=== PATIENT | male | born 1955 | race Two or more races ===

== ENCOUNTER 2019-10-21 09:55 | Inpatient (IN) | payer MEDICAID, OTHER, SELFPAY ==
[~2019-10-21] VITALS: Ht 170.2 cm; Wt 73.5 kg
[2019-10-21] MEDS ORDERED: SODIUM CHLORIDE 0.9% 500 ML IV ONE ×2 (10:17→11:36)
[2019-10-21] MEDS ORDERED: SODIUM CHLORIDE 0.9% 1000ML BAG (SEPSIS BOLUS) IV ONE (10:30)
[2019-10-21 11:01] LABS: BASOPHILS % 0.2 % (0.0-2.0); EOSINOPHILS % 0.1 % (0.0-5.0); HEMATOCRIT. 41.4 % (42.0-52.0); HEMOGLOBIN. 14.3 g/dL (14.0-18.0); MEAN CORPUSCULAR HEMOGLOBIN 29.2 pg (28.0-32.0); MEAN CORPUSCULAR VOLUME 84.4 fL (80.0-94.0); MEAN PLATELET VOLUME 7.4 fl (7.4-10.4); MONOCYTES % 13.9 % (2.0-8.0); NEUTROPHILS % 65.8 % (40.0-76.0); PLATELET 153 x1000/uL (130-400); RED CELL DISTRIBUTION WIDTH 13.8 % (11.6-14.6)
[2019-10-21 11:09] LABS: CHLORIDE 86 mEq/L (98-107)
[2019-10-21 11:13] LABS: D-DIMER 0.68 mg/L FEU (<0.50); ETHANOL BLOOD < 10 mg/dL; INR 1.1; PROTHROMBIN TIME 11.4 sec (9.6-11.0)
[2019-10-21 11:19] LABS: CREATINE KINASE 717 IU/L (39-308)
[2019-10-21 11:31] LABS: CLARITY URINE CLEAR (CLEAR); COLOR URINE YELLOW (YELLOW); KETONES URINE 1+ (NEGATIVE); LEUKOCYTE ESTERASE URINE NEGATIVE (NEGATIVE); NITRITE URINE NEGATIVE (NEGATIVE); OCCULT BLOOD URINE 1+ (NEGATIVE); PH URINE 6.5 (4.5-8.0); PROTEIN URINE 1+ (NEGATIVE); SPECIFIC GRAVITY URINE 1.007 (1.005-1.030)
[2019-10-21 11:54] LABS: OPIATES URINE SCREEN NEGATIVE (NEGATIVE); PHENCYCLIDINE URINE SCREEN NEGATIVE (NEGATIVE)
[2019-10-21 11:55] LABS: *AMPHETAMINES SCREEN URINE NEGATIVE (NEGATIVE); *BARBITURATES SCREEN URINE NEGATIVE (NEGATIVE); *BENZODIAZEPINES SCREEN URINE NEGATIVE (NEGATIVE); *COCAINE SCREEN URINE NEGATIVE (NEGATIVE); CANNABINOID URINE SCREEN NEGATIVE (NEGATIVE); METHADONE URINE SCREEN NEGATIVE (NEGATIVE)
[2019-10-21] MEDS ORDERED: LORAZEPAM 0.5MG TABLET PO PRN (12:30)
[2019-10-21] MEDS ORDERED: DOCUSATE SODIUM 100MG CAPSULE PO PRN (12:30)
[2019-10-21] MEDS ORDERED: CLONIDINE 0.1MG TABLET PO PRN (12:30)
[2019-10-21] MEDS ORDERED: ZOLPIDEM TARTRATE 5MG TABLET PO PRN (12:30)
[2019-10-21] MEDS ORDERED: ONDANSETRON HCL 4MG/2ML INJ IV PRN (12:30)
[2019-10-21] MEDS ORDERED: MAGNESIUM/ALUMINUM HYDROXIDE/SIMETHICONE 30ML UDC PO PRN (12:30)
[2019-10-21] MEDS ORDERED: IPRATROPIUM/ALBUTEROL 0.5-3(2.5)MG/3ML NEB ORI PRN (12:30)
[2019-10-21 13:01] LABS: T4 FREE 0.98 ng/dL (0.76-1.46)
[2019-10-21 14:10] LABS: FOLIC ACID (FOLATE) SERUM >20 ng/mL ng/mL (>5.38)
[2019-10-21] MEDS ORDERED: CEFTRIAXONE 1 G PREMIX 50 ML IV SCH (14:15)
[2019-10-21 14:21] LABS: VITAMIN B12 SERUM 247 pg/mL (211-911)
[2019-10-21] MEDS ORDERED: AZITHROMYCIN 500 MG in DEXT 5% WATER 250 ML IV SCH (14:30)
[2019-10-21 15:25] VITALS: BP_SYST 135; BP_DIAS 85; BP_DIAS 87
[2019-10-21 16:00] VITALS: BP 140/84
[2019-10-21] MEDS: GUAIFENESIN/DM 600MG/30MG ER TAB 12HR PO SCH (16:33)
[2019-10-21] MEDS: ENOXAPARIN 40MG/0.4ML SYR SUBCUT SCH (16:33)
[2019-10-21 20:00] VITALS: BP 149/91
[2019-10-21] MEDS: FAMOTIDINE 20MG TABLET PO SCH (21:08)
[2019-10-21] MEDS: METOPROLOL TARTRATE 25MG TABLET PO SCH (21:09)
[2019-10-21] MEDS: ACETAMINOPHEN 325MG TABLET PO PRN (21:09)
[2019-10-21] MEDS: ASCORBIC ACID 500 MG TABLET PO SCH (21:12)
[2019-10-22] MEDS: GUAIFENESIN/DM 600MG/30MG ER TAB 12HR PO SCH ×2 (03:59→12:38)
[2019-10-22 04:00] VITALS: BP 149/89
[2019-10-22 07:46] LABS: BASOPHILS % 0.3 % (0.0-2.0); HEMATOCRIT. 40.5 % (42.0-52.0); HEMOGLOBIN. 14.1 g/dL (14.0-18.0); MEAN CORPUSCULAR HEMOGLOBIN 29.3 pg (28.0-32.0); MEAN CORPUSCULAR VOLUME 84.1 fL (80.0-94.0); MONOCYTES % 8.4 % (2.0-8.0); NEUTROPHILS % 73.3 % (40.0-76.0); PLATELET 158 x1000/uL (130-400); RED BLOOD CELL COUNT 4.81 mill/uL (4.7-6.1); RED CELL DISTRIBUTION WIDTH 13.9 % (11.6-14.6)
[2019-10-22 07:53] LABS: CHLORIDE 92 mEq/L (98-107)
[2019-10-22 08:00] VITALS: BP 158/81
[2019-10-22 08:00] LABS: PHOSPHORUS 2.1 mg/dL (2.5-4.9)
[2019-10-22] MEDS: METOPROLOL TARTRATE 25MG TABLET PO SCH ×2 (08:51→20:11)
[2019-10-22] MEDS: FAMOTIDINE 20MG TABLET PO SCH ×2 (08:51→20:11)
[2019-10-22] MEDS: ASCORBIC ACID 500 MG TABLET PO SCH ×2 (08:51→20:11)
[2019-10-22] MEDS ORDERED: CEFTRIAXONE 1 G PREMIX 50 ML IV SCH (09:00)
[2019-10-22] MEDS ORDERED: AZITHROMYCIN 500MG in DEXTROSE 5% WATER 250ML IV SCH (09:00)
[2019-10-22] MEDS: ACETAMINOPHEN 325MG TABLET PO PRN ×3 (09:03→22:01)
[2019-10-22] MEDS: GUAIFENESIN 200MG/10ML SUGAR FREE UDC PO PRN (09:03)
[2019-10-22] MEDS: ZINC SULFATE 220 MG ( 50 ) CAPSULE PO SCH (09:04)
[2019-10-22 12:00] VITALS: BP 122/70
[2019-10-22 16:00] VITALS: BP 146/81
[2019-10-22] MEDS: ENOXAPARIN 40MG/0.4ML SYR SUBCUT SCH (16:08)
[2019-10-22] MEDS ORDERED: ALBUTEROL 6.7GM HFA INHALER ORI NR (17:00)
[2019-10-22] MEDS ORDERED: AZITHROMYCIN 250 MG in DEXT 5% WATER 250 ML IV SCH (18:00)
[2019-10-22] MEDS ORDERED: ALBUTEROL 6.7GM HFA INHALER ORI PRN (18:00)
[2019-10-22 20:00] VITALS: BP 137/86
[2019-10-23] VITALS: BP 121/79
[2019-10-23] MEDS: GUAIFENESIN/DM 600MG/30MG ER TAB 12HR PO SCH ×3 (00:18→23:34)
[2019-10-23] MEDS: ACETAMINOPHEN 325MG TABLET PO PRN ×4 (03:19→23:46)
[2019-10-23 03:40] VITALS: BP 108/53
[2019-10-23] MEDS: AZITHROMYCIN 250 MG in DEXT 5% WATER 250 ML IV SCH (07:50)
[2019-10-23] MEDS: ASCORBIC ACID 500 MG TABLET PO SCH ×2 (07:50→20:35)
[2019-10-23] MEDS: ZINC SULFATE 220 MG ( 50 ) CAPSULE PO SCH (07:50)
[2019-10-23] MEDS: CEFTRIAXONE 1 G PREMIX 50 ML IV SCH (07:50)
[2019-10-23] MEDS: FAMOTIDINE 20MG TABLET PO SCH ×2 (07:50→20:35)
[2019-10-23 08:00] VITALS: BP 124/72
[2019-10-23] MEDS: METOPROLOL TARTRATE 25MG TABLET PO SCH ×3 (12:08→20:49)
[2019-10-23 12:25] VITALS: BP 123/81
[2019-10-23 15:50] VITALS: BP 118/73
[2019-10-23] MEDS: ENOXAPARIN 40MG/0.4ML SYR SUBCUT SCH (16:51)
[2019-10-23 20:00] VITALS: BP 103/59
[2019-10-24] VITALS: BP 123/71
[2019-10-24] MEDS: ACETAMINOPHEN 325MG TABLET PO PRN ×4 (04:35→22:09)
[2019-10-24 08:00] VITALS: BP 100/50
[2019-10-24] MEDS: METOPROLOL TARTRATE 25MG TABLET PO SCH ×2 (08:08→20:50)
[2019-10-24] MEDS: FAMOTIDINE 20MG TABLET PO SCH ×2 (08:22→20:48)
[2019-10-24] MEDS: ASCORBIC ACID 500 MG TABLET PO SCH ×2 (08:22→20:48)
[2019-10-24] MEDS: ZINC SULFATE 220 MG ( 50 ) CAPSULE PO SCH (08:22)
[2019-10-24] MEDS: CEFTRIAXONE 1 G PREMIX 50 ML IV SCH (10:01)
[2019-10-24 11:45] VITALS: BP 108/67
[2019-10-24] MEDS: AZITHROMYCIN 250 MG in DEXT 5% WATER 250 ML IV SCH (13:13)
[2019-10-24] MEDS: GUAIFENESIN/DM 600MG/30MG ER TAB 12HR PO SCH (13:13)
[2019-10-24 16:00] VITALS: BP 143/72
[2019-10-24] MEDS: ENOXAPARIN 40MG/0.4ML SYR SUBCUT SCH (16:17)
[2019-10-24 20:56] VITALS: BP 109/64
[2019-10-25] MEDS: ALBUTEROL 6.7GM HFA INHALER ORI SCH
[2019-10-25] MEDS: GUAIFENESIN/DM 600MG/30MG ER TAB 12HR PO SCH ×2 (00:13→12:12)
[2019-10-25 00:38] VITALS: BP 131/66
[2019-10-25 04:00] VITALS: BP 122/77
[2019-10-25 08:00] VITALS: BP 119/75
[2019-10-25] MEDS: AZITHROMYCIN 250 MG in DEXT 5% WATER 250 ML IV SCH (08:47)
[2019-10-25] MEDS: CEFTRIAXONE 1 G PREMIX 50 ML IV SCH (09:28)
[2019-10-25] MEDS: ZINC SULFATE 220 MG ( 50 ) CAPSULE PO SCH (09:28)
[2019-10-25] MEDS: METOPROLOL TARTRATE 25MG TABLET PO SCH ×2 (09:28→20:26)
[2019-10-25] MEDS: ASCORBIC ACID 500 MG TABLET PO SCH ×2 (09:28→20:26)
[2019-10-25] MEDS: FAMOTIDINE 20MG TABLET PO SCH ×2 (09:32→20:26)
[2019-10-25] MEDS: ACETAMINOPHEN 325MG TABLET PO PRN (11:25)
[2019-10-25 12:00] VITALS: BP 110/65
[2019-10-25] MEDS: METHYLPREDNISOLONE SOD SUCC 40 MG/ML VIAL IV SCH ×2 (13:44→16:29)
[2019-10-25 16:00] VITALS: BP 115/64
[2019-10-25] MEDS: ENOXAPARIN 40MG/0.4ML SYR SUBCUT SCH (16:28)
[2019-10-25 20:00] VITALS: BP 135/78
[2019-10-25] MEDS: GUAIFENESIN 200MG/10ML SUGAR FREE UDC PO PRN (20:26)
[2019-10-25] MEDS: GUAIFENESIN 600MG ER TABLET PO SCH (20:26)
[2019-10-25] MEDS: KETOROLAC 15MG/ML VIAL IV PRN (20:38)
[2019-10-26] VITALS: BP 117/69
[2019-10-26 04:00] VITALS: BP 139/70
[2019-10-26] MEDS: ALBUTEROL 6.7GM HFA INHALER ORI SCH ×2 (05:24→13:00)
[2019-10-26] MEDS: KETOROLAC 15MG/ML VIAL IV PRN ×2 (05:29→12:31)
[2019-10-26 08:00] VITALS: BP 109/77
[2019-10-26] MEDS: AZITHROMYCIN 250 MG in DEXT 5% WATER 250 ML IV SCH (08:21)
[2019-10-26] MEDS: FAMOTIDINE 20MG TABLET PO SCH ×2 (08:22→20:41)
[2019-10-26] MEDS: GUAIFENESIN 600MG ER TABLET PO SCH ×2 (08:22→20:41)
[2019-10-26] MEDS: METHYLPREDNISOLONE SOD SUCC 40 MG/ML VIAL IV SCH ×2 (08:22→16:15)
[2019-10-26] MEDS: ZINC SULFATE 220 MG ( 50 ) CAPSULE PO SCH (08:22)
[2019-10-26] MEDS: ASCORBIC ACID 500 MG TABLET PO SCH ×2 (08:22→20:41)
[2019-10-26] MEDS: METOPROLOL TARTRATE 25MG TABLET PO SCH ×2 (09:00→21:00)
[2019-10-26 12:00] VITALS: BP 113/75
[2019-10-26 16:00] VITALS: BP 118/73
[2019-10-26] MEDS: ENOXAPARIN 40MG/0.4ML SYR SUBCUT SCH (16:16)
[2019-10-27] VITALS: BP 106/59
[2019-10-27] MEDS: ALBUTEROL 6.7GM HFA INHALER ORI SCH ×2 (00:19→07:06)
[2019-10-27 04:00] VITALS: BP 124/62
[2019-10-27 08:00] VITALS: BP 103/66
[2019-10-27] MEDS: FAMOTIDINE 20MG TABLET PO SCH ×2 (08:53→21:10)
[2019-10-27] MEDS: METOPROLOL TARTRATE 25MG TABLET PO SCH ×2 (08:53→21:00)
[2019-10-27] MEDS: ASCORBIC ACID 500 MG TABLET PO SCH ×2 (08:53→21:10)
[2019-10-27] MEDS: ZINC SULFATE 220 MG ( 50 ) CAPSULE PO SCH (08:53)
[2019-10-27] MEDS: METHYLPREDNISOLONE SOD SUCC 40 MG/ML VIAL IV SCH ×2 (08:53→16:26)
[2019-10-27] MEDS: GUAIFENESIN 600MG ER TABLET PO SCH ×2 (08:53→21:10)
[2019-10-27 12:00] VITALS: BP 123/72
[2019-10-27 16:00] VITALS: BP 126/79
[2019-10-27] MEDS: ENOXAPARIN 40MG/0.4ML SYR SUBCUT SCH (16:26)
[2019-10-27 20:00] VITALS: BP 148/81
[2019-10-28] VITALS: BP 141/75
[2019-10-28] MEDS: ALBUTEROL 6.7GM HFA INHALER ORI SCH ×5 (00:33→23:06)
[2019-10-28 04:00] VITALS: BP 146/82
[2019-10-28 08:00] VITALS: BP 150/90
[2019-10-28] MEDS: METOPROLOL TARTRATE 25MG TABLET PO SCH ×3 (09:00→20:59)
[2019-10-28] MEDS: ASCORBIC ACID 500 MG TABLET PO SCH ×2 (10:17→20:58)
[2019-10-28] MEDS: FAMOTIDINE 20MG TABLET PO SCH ×2 (10:17→20:59)
[2019-10-28] MEDS: METHYLPREDNISOLONE SOD SUCC 40 MG/ML VIAL IV SCH ×2 (10:18→17:34)
[2019-10-28] MEDS: GUAIFENESIN 600MG ER TABLET PO SCH ×2 (10:18→20:59)
[2019-10-28] MEDS: ZINC SULFATE 220 MG ( 50 ) CAPSULE PO SCH (10:18)
[2019-10-28 12:00] VITALS: BP 140/84
[2019-10-28 16:00] VITALS: BP 150/85
[2019-10-28] MEDS: ENOXAPARIN 40MG/0.4ML SYR SUBCUT SCH (17:35)
[2019-10-28 17:45] LABS: HEMATOCRIT. 43.8 % (42.0-52.0); MEAN CORPUSCULAR VOLUME 84.8 fL (80.0-94.0); MEAN PLATELET VOLUME 7.1 fl (7.4-10.4); PLATELET 467 x1000/uL (130-400); RED BLOOD CELL COUNT 5.17 mill/uL (4.7-6.1)
[2019-10-28 17:52] LABS: CHLORIDE 95 mEq/L (98-107)
[2019-10-28 17:59] LABS: PHOSPHORUS 2.6 mg/dL (2.5-4.9)
[2019-10-28 18:01] LABS: CREATINE KINASE MB FRACTION < 1.0 ng/mL (0.5-3.6)
[2019-10-28 18:04] LABS: BG BASE EXCESS 4.1 mmol/L (-2.0-2.0); BG CARBOXYHEMOGLOBIN 0.6 % (0.5-1.5); BG DEOXYHEMOGLOBIN 6.7 % (0.0-5.0); BG FRACTION INSPIRED OXYGEN 100; BG METHEMOGLOBIN 0.3 % (0.0-1.5); BG OXYGEN SATURATION 93.2 % (92.0-98.5); BG OXYHEMOGLOBIN 92.4 % (94.0-97.0); BG PCO2 39.2 mmHg (35.0-45.0); BG PH 7.471 (7.350-7.450); BG PO2 66.8 mmHg (75.0-100.0); BG SAMPLE SITE RIGHT RADIAL; BG VENT MODE MASK - NRB
[2019-10-28 18:07] LABS: PLATELET ESTIMATE INCREASED
[2019-10-28 20:00] VITALS: BP 137/113
[2019-10-29] VITALS: BP 148/91
[2019-10-29 04:00] VITALS: BP 121/64
[2019-10-29] MEDS: ALBUTEROL 6.7GM HFA INHALER ORI SCH ×3 (05:58→17:17)
[2019-10-29 08:00] VITALS: BP 138/85
[2019-10-29] MEDS: METHYLPREDNISOLONE SOD SUCC 40 MG/ML VIAL IV SCH (08:06)
[2019-10-29] MEDS: GUAIFENESIN 600MG ER TABLET PO SCH ×2 (08:06→20:43)
[2019-10-29] MEDS: FAMOTIDINE 20MG TABLET PO SCH ×2 (08:06→20:43)
[2019-10-29] MEDS: METOPROLOL TARTRATE 25MG TABLET PO SCH ×4 (08:06→21:00)
[2019-10-29] MEDS: ZINC SULFATE 220 MG ( 50 ) CAPSULE PO SCH (08:06)
[2019-10-29] MEDS: ASCORBIC ACID 500 MG TABLET PO SCH ×2 (08:06→20:43)
[2019-10-29 12:00] VITALS: BP 130/80
[2019-10-29 16:00] VITALS: BP 124/73
[2019-10-29] MEDS: ENOXAPARIN 40MG/0.4ML SYR SUBCUT SCH (17:17)
[2019-10-29 20:00] VITALS: BP 104/69
[2019-10-30] VITALS: BP 110/68
[2019-10-30] MEDS: ACETAMINOPHEN 325MG TABLET PO PRN ×2 (02:08→12:16)
[2019-10-30 04:03] VITALS: BP 118/68
[2019-10-30] MEDS: ALBUTEROL 6.7GM HFA INHALER ORI SCH ×4 (06:00→16:59)
[2019-10-30 08:00] VITALS: BP 128/80
[2019-10-30] MEDS: ASCORBIC ACID 500 MG TABLET PO SCH ×2 (10:20→21:11)
[2019-10-30] MEDS: GUAIFENESIN 600MG ER TABLET PO SCH ×2 (10:20→21:10)
[2019-10-30] MEDS: ZINC SULFATE 220 MG ( 50 ) CAPSULE PO SCH (10:20)
[2019-10-30] MEDS: METOPROLOL TARTRATE 25MG TABLET PO SCH ×2 (10:21→21:11)
[2019-10-30] MEDS: FAMOTIDINE 20MG TABLET PO SCH ×2 (10:24→21:11)
[2019-10-30 12:00] VITALS: BP 130/84
[2019-10-30 16:00] VITALS: BP 134/82
[2019-10-30] MEDS: ENOXAPARIN 40MG/0.4ML SYR SUBCUT SCH (16:59)
[2019-10-30 20:00] VITALS: BP 138/88
[2019-10-30] MEDS ORDERED: DEXTROSE 50% WATER 50ML SYRINGE IV PRN (21:15)
[2019-10-31] MEDS: ALBUTEROL 6.7GM HFA INHALER ORI SCH ×5 (00:16→23:53)
[2019-10-31 00:54] VITALS: BP 130/78
[2019-10-31 04:00] VITALS: BP 131/83
[2019-10-31] MEDS: BLOOD SUGAR DIAGNOSTIC STRIP TEST SCH ×4 (07:09→20:35)
[2019-10-31 08:00] VITALS: BP 129/87
[2019-10-31] MEDS: ZINC SULFATE 220 MG ( 50 ) CAPSULE PO SCH (10:12)
[2019-10-31] MEDS: ASCORBIC ACID 500 MG TABLET PO SCH ×2 (10:12→20:34)
[2019-10-31] MEDS: FAMOTIDINE 20MG TABLET PO SCH ×2 (10:12→20:34)
[2019-10-31] MEDS: GUAIFENESIN 600MG ER TABLET PO SCH ×2 (10:13→20:35)
[2019-10-31] MEDS: INSULIN LISPRO 100 UNITS/ML SUBCUT SCH ×4 (10:14→20:49)
[2019-10-31] MEDS: METOPROLOL TARTRATE 25MG TABLET PO SCH ×2 (10:31→20:35)
[2019-10-31 12:00] VITALS: BP 148/89
[2019-10-31 16:00] VITALS: BP 129/87
[2019-10-31] MEDS: ENOXAPARIN 40MG/0.4ML SYR SUBCUT SCH (17:15)
[2019-10-31 20:00] VITALS: BP 139/89
[2019-11-01] VITALS: BP 130/86
[2019-11-01 04:00] VITALS: BP 116/84
[2019-11-01] MEDS: ALBUTEROL 6.7GM HFA INHALER ORI SCH ×3 (05:11→17:18)
[2019-11-01] MEDS: BLOOD SUGAR DIAGNOSTIC STRIP TEST SCH ×4 (07:11→21:00)
[2019-11-01] MEDS: INSULIN LISPRO 100 UNITS/ML SUBCUT SCH ×4 (07:11→21:00)
[2019-11-01 08:25] VITALS: BP 124/83
[2019-11-01] MEDS: ZINC SULFATE 220 MG ( 50 ) CAPSULE PO SCH (08:32)
[2019-11-01] MEDS: ASCORBIC ACID 500 MG TABLET PO SCH ×2 (08:32→23:07)
[2019-11-01] MEDS: FAMOTIDINE 20MG TABLET PO SCH ×2 (08:32→23:08)
[2019-11-01] MEDS: GUAIFENESIN 600MG ER TABLET PO SCH ×2 (08:33→21:00)
[2019-11-01] MEDS: METOPROLOL TARTRATE 25MG TABLET PO SCH ×2 (08:33→23:05)
[2019-11-01 11:49] VITALS: BP 126/72
[2019-11-01] MEDS: ENOXAPARIN 40MG/0.4ML SYR SUBCUT SCH ×2 (15:13→15:34)
[2019-11-01 16:00] VITALS: BP 118/68
[2019-11-01 20:00] VITALS: BP 114/82
[2019-11-02] VITALS: BP_SYST 143; BP_SYST 98; BP_DIAS 95
[2019-11-02 04:00] VITALS: BP 115/85
[2019-11-02] MEDS: ALBUTEROL 6.7GM HFA INHALER ORI SCH ×4 (06:41→17:36)
[2019-11-02] MEDS: BLOOD SUGAR DIAGNOSTIC STRIP TEST SCH ×4 (06:41→17:56)
[2019-11-02] MEDS: INSULIN LISPRO 100 UNITS/ML SUBCUT SCH ×4 (06:41→22:30)
[2019-11-02 07:20] LABS: BASOPHILS % 0.4 % (0.0-2.0); EOSINOPHILS % 0.2 % (0.0-5.0); HEMATOCRIT. 49.5 % (42.0-52.0); HEMOGLOBIN. 16.6 g/dL (14.0-18.0); LYMPHOCYTES % 13.2 % (20.0-50.0); MEAN CORPUSCULAR HEMOGLOBIN 28.8 pg (28.0-32.0); MEAN PLATELET VOLUME 6.9 fl (7.4-10.4); MONOCYTES % 11.9 % (2.0-8.0); NEUTROPHILS % 74.3 % (40.0-76.0); PLATELET 578 x1000/uL (130-400); RED BLOOD CELL COUNT 5.76 mill/uL (4.7-6.1); RED CELL DISTRIBUTION WIDTH 14.7 % (11.6-14.6)
[2019-11-02 07:41] LABS: CHLORIDE 99 mEq/L (98-107)
[2019-11-02 08:00] VITALS: BP 117/88
[2019-11-02] MEDS: ASCORBIC ACID 500 MG TABLET PO SCH ×2 (10:08→22:29)
[2019-11-02] MEDS: METOPROLOL TARTRATE 25MG TABLET PO SCH ×2 (10:08→22:28)
[2019-11-02] MEDS: ZINC SULFATE 220 MG ( 50 ) CAPSULE PO SCH (10:08)
[2019-11-02] MEDS: FAMOTIDINE 20MG TABLET PO SCH ×2 (10:08→22:28)
[2019-11-02] MEDS: GUAIFENESIN 600MG ER TABLET PO SCH ×2 (10:08→22:29)
[2019-11-02 12:00] VITALS: BP 120/89
[2019-11-02 16:00] VITALS: BP 121/84
[2019-11-02] MEDS: ENOXAPARIN 40MG/0.4ML SYR SUBCUT SCH (17:39)
[2019-11-02 20:00] VITALS: BP 132/81
[2019-11-03] VITALS: BP 111/84
[2019-11-03 04:00] VITALS: BP 110/71
[2019-11-03] MEDS: BLOOD SUGAR DIAGNOSTIC STRIP TEST SCH ×4 (07:01→21:00)
[2019-11-03] MEDS: INSULIN LISPRO 100 UNITS/ML SUBCUT SCH ×4 (07:14→21:00)
[2019-11-03 08:00] VITALS: BP 98/65
[2019-11-03] MEDS: GUAIFENESIN 600MG ER TABLET PO SCH ×2 (09:00→22:02)
[2019-11-03] MEDS: GUAIFENESIN 200MG/10ML SUGAR FREE UDC PO PRN (09:13)
[2019-11-03] MEDS: ASCORBIC ACID 500 MG TABLET PO SCH ×2 (09:13→22:02)
[2019-11-03] MEDS: FAMOTIDINE 20MG TABLET PO SCH ×2 (09:13→22:02)
[2019-11-03] MEDS: ZINC SULFATE 220 MG ( 50 ) CAPSULE PO SCH (09:14)
[2019-11-03] MEDS: METOPROLOL TARTRATE 25MG TABLET PO SCH ×2 (09:14→21:00)
[2019-11-03 12:00] VITALS: BP 110/70
[2019-11-03] MEDS ORDERED: DILTIAZEM HCL 30MG TABLET PO SCH (12:00)
[2019-11-03] MEDS: ALBUTEROL 6.7GM HFA INHALER ORI SCH ×2 (13:09→18:23)
[2019-11-03] MEDS ORDERED: DIGOXIN 500MCG/2ML AMP IV PRN (13:45)
[2019-11-03] MEDS: ENOXAPARIN 40MG/0.4ML SYR SUBCUT SCH (18:19)
[2019-11-03] MEDS ORDERED: BENZONATATE 100MG CAPSULE PO PRN (18:45)
[2019-11-03 20:00] VITALS: BP 108/82
[2019-11-03] MEDS: DILTIAZEM HCL 60MG TABLET PO SCH (22:03)
[2019-11-04] VITALS: BP 110/80
[2019-11-04] MEDS: ALBUTEROL 6.7GM HFA INHALER ORI SCH ×4 (00:58→18:27)
[2019-11-04 04:00] VITALS: BP 103/68
[2019-11-04 05:38] LABS: BASOPHILS % 0.9 % (0.0-2.0); EOSINOPHILS % 0.2 % (0.0-5.0); HEMATOCRIT. 45.7 % (42.0-52.0); HEMOGLOBIN. 15.3 g/dL (14.0-18.0); LYMPHOCYTES % 16.3 % (20.0-50.0); MEAN CORPUSCULAR HEMOGLOBIN 28.6 pg (28.0-32.0); MEAN CORPUSCULAR VOLUME 85.5 fL (80.0-94.0); MEAN PLATELET VOLUME 7.1 fl (7.4-10.4); MONOCYTES % 12.5 % (2.0-8.0); NEUTROPHILS % 70.1 % (40.0-76.0); PLATELET 533 x1000/uL (130-400); RED BLOOD CELL COUNT 5.34 mill/uL (4.7-6.1); RED CELL DISTRIBUTION WIDTH 14.2 % (11.6-14.6)
[2019-11-04 05:54] LABS: CHLORIDE 99 mEq/L (98-107)
[2019-11-04] MEDS: DILTIAZEM HCL 60MG TABLET PO SCH ×3 (06:00→22:47)
[2019-11-04] MEDS: BLOOD SUGAR DIAGNOSTIC STRIP TEST SCH ×4 (07:58→21:00)
[2019-11-04 08:00] VITALS: BP 97/73
[2019-11-04] MEDS: INSULIN LISPRO 100 UNITS/ML SUBCUT SCH ×4 (08:10→21:00)
[2019-11-04] MEDS: ASCORBIC ACID 500 MG TABLET PO SCH ×2 (08:48→22:48)
[2019-11-04] MEDS: ZINC SULFATE 220 MG ( 50 ) CAPSULE PO SCH (08:48)
[2019-11-04] MEDS: FAMOTIDINE 20MG TABLET PO SCH ×2 (08:48→21:00)
[2019-11-04] MEDS: ENOXAPARIN 80MG/0.8ML SYR SUBCUT SCH ×2 (08:48→22:49)
[2019-11-04] MEDS: GUAIFENESIN 600MG ER TABLET PO SCH ×2 (08:49→22:48)
[2019-11-04] MEDS: METOPROLOL TARTRATE 25MG TABLET PO SCH ×2 (08:50→21:00)
[2019-11-04 12:00] VITALS: BP 102/65
[2019-11-04] MEDS ORDERED: MAGNESIUM 2 G PREMIX 50 ML IV NR (12:00)
[2019-11-04] MEDS: CLOPIDOGREL 75MG TABLET PO SCH (12:16)
[2019-11-04] MEDS: MAGNESIUM OXIDE 400MG TABLET PO SCH (12:16)
[2019-11-04] MEDS: ASPIRIN 81MG EC TABLET PO SCH (12:16)
[2019-11-04 16:00] VITALS: BP 106/76
[2019-11-04 20:00] VITALS: BP 105/72
[2019-11-04] MEDS: ATORVASTATIN CALCIUM 10MG TABLET PO SCH (22:48)
[2019-11-05] VITALS: BP 102/69
[2019-11-05] MEDS: ALBUTEROL 6.7GM HFA INHALER ORI SCH ×2 (00:45→05:56)
[2019-11-05 04:00] VITALS: BP 99/71
[2019-11-05] MEDS: DILTIAZEM HCL 60MG TABLET PO SCH ×3 (05:57→22:00)
[2019-11-05 06:45] LABS: BASOPHILS % 1.1 % (0.0-2.0); EOSINOPHILS % 0.6 % (0.0-5.0); HEMATOCRIT. 40.4 % (42.0-52.0); LYMPHOCYTES % 20.3 % (20.0-50.0); MEAN CORPUSCULAR HEMOGLOBIN 29.4 pg (28.0-32.0); MEAN CORPUSCULAR VOLUME 84.8 fL (80.0-94.0); MEAN PLATELET VOLUME 6.9 fl (7.4-10.4); MONOCYTES % 13.2 % (2.0-8.0); NEUTROPHILS % 64.8 % (40.0-76.0); PLATELET 458 x1000/uL (130-400); RED BLOOD CELL COUNT 4.76 mill/uL (4.7-6.1); RED CELL DISTRIBUTION WIDTH 14.2 % (11.6-14.6)
[2019-11-05] MEDS: BLOOD SUGAR DIAGNOSTIC STRIP TEST SCH ×4 (07:05→21:00)
[2019-11-05 07:20] LABS: CHLORIDE 99 mEq/L (98-107)
[2019-11-05 07:29] LABS: CREATINE KINASE MB FRACTION 1.7 ng/mL (0.5-3.6)
[2019-11-05 07:33] LABS: CREATINE KINASE 62 IU/L (39-308)
[2019-11-05 08:00] VITALS: BP 94/70
[2019-11-05] MEDS: INSULIN LISPRO 100 UNITS/ML SUBCUT SCH ×4 (08:10→21:00)
[2019-11-05] MEDS: METOPROLOL TARTRATE 25MG TABLET PO SCH ×2 (09:00→23:25)
[2019-11-05] MEDS ORDERED: FUROSEMIDE 40MG/4ML VIAL IVP NR (09:45)
[2019-11-05] MEDS: ASCORBIC ACID 500 MG TABLET PO SCH ×2 (11:37→23:25)
[2019-11-05] MEDS: MAGNESIUM OXIDE 400MG TABLET PO SCH (11:37)
[2019-11-05] MEDS: FAMOTIDINE 20MG TABLET PO SCH ×2 (11:37→23:24)
[2019-11-05] MEDS: GUAIFENESIN 600MG ER TABLET PO SCH ×2 (11:44→23:25)
[2019-11-05] MEDS: ASPIRIN 81MG EC TABLET PO SCH (11:44)
[2019-11-05] MEDS: CLOPIDOGREL 75MG TABLET PO SCH (11:44)
[2019-11-05 12:00] VITALS: BP 112/81
[2019-11-05] MEDS: ENOXAPARIN 80MG/0.8ML SYR SUBCUT SCH ×2 (14:53→23:25)
[2019-11-05] MEDS: ZINC SULFATE 220 MG ( 50 ) CAPSULE PO SCH (14:53)
[2019-11-05 16:00] VITALS: BP 112/81
[2019-11-05 20:00] VITALS: BP 151/113
[2019-11-05] MEDS: ATORVASTATIN CALCIUM 10MG TABLET PO SCH (23:24)
[2019-11-06 04:00] VITALS: BP 120/73
[2019-11-06] MEDS: DILTIAZEM HCL 60MG TABLET PO SCH ×3 (06:29→22:00)
[2019-11-06] MEDS: BLOOD SUGAR DIAGNOSTIC STRIP TEST SCH ×4 (06:57→21:44)
[2019-11-06 08:00] VITALS: BP 96/62
[2019-11-06] MEDS: INSULIN LISPRO 100 UNITS/ML SUBCUT SCH ×4 (08:10→21:00)
[2019-11-06 08:23] LABS: EOSINOPHILS % 0.7 % (0.0-5.0); HEMATOCRIT. 41.9 % (42.0-52.0); HEMOGLOBIN. 14.1 g/dL (14.0-18.0); LYMPHOCYTES % 21.3 % (20.0-50.0); MEAN CORPUSCULAR HEMOGLOBIN 28.8 pg (28.0-32.0); MEAN CORPUSCULAR VOLUME 85.4 fL (80.0-94.0); MONOCYTES % 13.8 % (2.0-8.0); NEUTROPHILS % 62.2 % (40.0-76.0); PLATELET 418 x1000/uL (130-400); RED BLOOD CELL COUNT 4.91 mill/uL (4.7-6.1); RED CELL DISTRIBUTION WIDTH 13.8 % (11.6-14.6)
[2019-11-06 08:26] LABS: CHLORIDE 98 mEq/L (98-107)
[2019-11-06 08:33] LABS: CREATINE KINASE 50 IU/L (39-308)
[2019-11-06 08:35] LABS: CREATINE KINASE MB FRACTION < 1.0 ng/mL (0.5-3.6)
[2019-11-06] MEDS: METOPROLOL TARTRATE 25MG TABLET PO SCH ×2 (09:00→21:00)
[2019-11-06] MEDS: ENOXAPARIN 80MG/0.8ML SYR SUBCUT SCH ×2 (09:33→21:49)
[2019-11-06] MEDS: GUAIFENESIN 600MG ER TABLET PO SCH ×2 (09:34→21:49)
[2019-11-06] MEDS: CLOPIDOGREL 75MG TABLET PO SCH (09:34)
[2019-11-06] MEDS: MAGNESIUM OXIDE 400MG TABLET PO SCH (09:34)
[2019-11-06] MEDS: ASCORBIC ACID 500 MG TABLET PO SCH ×2 (09:34→21:49)
[2019-11-06] MEDS: FAMOTIDINE 20MG TABLET PO SCH ×2 (09:34→21:49)
[2019-11-06] MEDS: ASPIRIN 81MG EC TABLET PO SCH (09:34)
[2019-11-06] MEDS: ZINC SULFATE 220 MG ( 50 ) CAPSULE PO SCH (09:34)
[2019-11-06] MEDS: ALBUTEROL 6.7GM HFA INHALER ORI SCH ×4 (10:37→23:32)
[2019-11-06 12:00] VITALS: BP 111/69
[2019-11-06 16:00] VITALS: BP 99/71
[2019-11-06 20:00] VITALS: BP 102/72
[2019-11-06] MEDS: ATORVASTATIN CALCIUM 10MG TABLET PO SCH (21:49)
[2019-11-07] VITALS: BP 110/68
[2019-11-07 04:00] VITALS: BP 98/72
[2019-11-07] MEDS: DILTIAZEM HCL 60MG TABLET PO SCH ×3 (05:28→21:28)
[2019-11-07] MEDS: ALBUTEROL 6.7GM HFA INHALER ORI SCH ×3 (05:30→17:29)
[2019-11-07] MEDS: INSULIN LISPRO 100 UNITS/ML SUBCUT SCH ×4 (06:31→21:28)
[2019-11-07] MEDS: BLOOD SUGAR DIAGNOSTIC STRIP TEST SCH ×4 (06:31→21:23)
[2019-11-07 08:00] VITALS: BP 127/80
[2019-11-07] MEDS: CLOPIDOGREL 75MG TABLET PO SCH (08:41)
[2019-11-07] MEDS: ASCORBIC ACID 500 MG TABLET PO SCH ×2 (08:41→21:26)
[2019-11-07] MEDS: FAMOTIDINE 20MG TABLET PO SCH ×2 (08:41→21:26)
[2019-11-07] MEDS: ASPIRIN 81MG EC TABLET PO SCH (08:41)
[2019-11-07] MEDS: METOPROLOL TARTRATE 25MG TABLET PO SCH ×2 (08:41→21:27)
[2019-11-07] MEDS: ENOXAPARIN 80MG/0.8ML SYR SUBCUT SCH ×2 (08:41→21:26)
[2019-11-07] MEDS: MAGNESIUM OXIDE 400MG TABLET PO SCH (08:41)
[2019-11-07] MEDS: GUAIFENESIN 600MG ER TABLET PO SCH ×2 (08:41→21:26)
[2019-11-07] MEDS: ZINC SULFATE 220 MG ( 50 ) CAPSULE PO SCH (08:41)
[2019-11-07 12:00] VITALS: BP 98/72
[2019-11-07 16:00] VITALS: BP 93/62
[2019-11-07 20:00] VITALS: BP 111/72
[2019-11-07] MEDS: ATORVASTATIN CALCIUM 10MG TABLET PO SCH (21:26)
[2019-11-08] VITALS: BP 99/70
[2019-11-08] MEDS: ALBUTEROL 6.7GM HFA INHALER ORI SCH ×3 (00:56→11:30)
[2019-11-08 04:30] VITALS: BP 102/71
[2019-11-08] MEDS: DILTIAZEM HCL 60MG TABLET PO SCH ×2 (06:00→13:24)
[2019-11-08 08:00] VITALS: BP 132/70
[2019-11-08] MEDS: INSULIN LISPRO 100 UNITS/ML SUBCUT SCH ×2 (08:10→13:24)
[2019-11-08] MEDS: BLOOD SUGAR DIAGNOSTIC STRIP TEST SCH ×2 (08:26→11:34)
[2019-11-08] MEDS: ASPIRIN 81MG EC TABLET PO SCH (08:27)
[2019-11-08] MEDS: CLOPIDOGREL 75MG TABLET PO SCH (08:27)
[2019-11-08] MEDS: FAMOTIDINE 20MG TABLET PO SCH (08:27)
[2019-11-08] MEDS: METOPROLOL TARTRATE 25MG TABLET PO SCH (08:28)
[2019-11-08] MEDS: GUAIFENESIN 600MG ER TABLET PO SCH (08:28)
[2019-11-08] MEDS: ASCORBIC ACID 500 MG TABLET PO SCH (08:28)
[2019-11-08] MEDS: ZINC SULFATE 220 MG ( 50 ) CAPSULE PO SCH (08:28)
[2019-11-08] MEDS: MAGNESIUM OXIDE 400MG TABLET PO SCH (08:29)
[2019-11-08] MEDS: ENOXAPARIN 80MG/0.8ML SYR SUBCUT SCH (08:45)
[2019-11-08 17:03] VITALS: BP 103/71
[2019-11-08] MEDS: ACETAMINOPHEN 325MG TABLET PO PRN (17:54)
== END 2019-11-08 18:15 | disposition home or self-care (01) | DRG 720 ==
LOC: ER 09:55 → EDBEDREQ 10:52 → EDBEDREQTM 10:55 → ENRESERV 11:14 → 7WST 11:55 → EDBEDREQ 11:56
PROVIDERS: ADMIT Internal Medicine; ATTEND Internal Medicine
DX: A41.89 Other specified sepsis (principal); U07.1 COVID-19; J96.01 Acute respiratory failure with hypoxia; I21.4 Non-ST elevation (NSTEMI) myocardial infarction; G93.41 Metabolic encephalopathy; E44.1 Mild protein-calorie malnutrition; M62.82 Rhabdomyolysis; I48.0 Paroxysmal atrial fibrillation; E86.1 Hypovolemia; E83.42 Hypomagnesemia; E83.51 Hypocalcemia; E87.1 Hypo-osmolality and hyponatremia; F17.210 Nicotine dependence, cigarettes, uncomplicated; E03.9 Hypothyroidism, unspecified; J12.89 Other viral pneumonia; N39.0 Urinary tract infection, site not specified; F03.90 Unspecified dementia, unspecified severity, without behavioral disturbance, psychotic disturbance, mood disturbance, and anxiety; F20.9 Schizophrenia, unspecified; I25.10 Atherosclerotic heart disease of native coronary artery without angina pectoris; I48.92 Unspecified atrial flutter; Z68.25 Body mass index [BMI] 25.0-25.9, adult; Z79.899 Other long term (current) drug therapy; Z79.02 Long term (current) use of antithrombotics/antiplatelets
CPT/HCPCS: 36415; 36600; 71045; 80048; 80053; 80061; 80305; 80320; 81003; 82375; 82550; 82553; 82607; 82728; 82746; 82805; 82962; 83036; 83540; 83550; 83605; 83615; 83735; 83880; 84100; 84145; 84439; 84443; 84484; 85025; 85379; 85384; 86140; 87635; 87804; 93005; 93306; 99291; J0456; J0696; J1650; J1815; J1885; J1940; J2920; J3475; J7030; J7040; J7060; G0480; U0003-CS

== ENCOUNTER 2019-11-09 14:56 | Inpatient (IN) | payer MEDICAID, OTHER, SELFPAY ==
[~2019-11-09] VITALS: Ht 170.2 cm; Wt 70.8 kg
[2019-11-09] MEDS ORDERED: ONDANSETRON HCL 4MG/2ML INJ IV ONE (16:30)
[2019-11-09] MEDS ORDERED: FAMOTIDINE 20MG/2ML VIAL IV ONE (16:30)
[2019-11-09] MEDS ORDERED: MORPHINE SULFATE 4 MG/ML CPJ (NOT FOR IM USE) IV ONE (16:30)
[2019-11-09 17:28] LABS: CLARITY URINE CLEAR (CLEAR); COLOR URINE YELLOW (YELLOW); KETONES URINE NEGATIVE (NEGATIVE); LEUKOCYTE ESTERASE URINE TRACE (NEGATIVE); NITRITE URINE NEGATIVE (NEGATIVE); OCCULT BLOOD URINE NEGATIVE (NEGATIVE); PROTEIN URINE NEGATIVE (NEGATIVE); SPECIFIC GRAVITY URINE 1.016 (1.005-1.030)
[2019-11-09 17:28] LABS: BASOPHILS % 1.8 % (0.0-2.0); EOSINOPHILS % 0.9 % (0.0-5.0); HEMATOCRIT. 39.8 % (42.0-52.0); HEMOGLOBIN. 13.8 g/dL (14.0-18.0); LYMPHOCYTES % 25.7 % (20.0-50.0); MEAN CORPUSCULAR HEMOGLOBIN 29.4 pg (28.0-32.0); MEAN CORPUSCULAR VOLUME 84.8 fL (80.0-94.0); MEAN PLATELET VOLUME 7.3 fl (7.4-10.4); MONOCYTES % 10.9 % (2.0-8.0); NEUTROPHILS % 60.7 % (40.0-76.0); PLATELET 325 x1000/uL (130-400)
[2019-11-09 17:33] LABS: CHLORIDE 99 mEq/L (98-107)
[2019-11-09 17:40] LABS: CREATINE KINASE 61 IU/L (39-308)
[2019-11-09 17:47] LABS: D-DIMER 1.12 mg/L FEU (<0.50); PROTHROMBIN TIME 11.3 sec (9.6-11.0)
[2019-11-09] MEDS ORDERED: ASPIRIN 81MG EC TABLET PO ONE (19:15)
[2019-11-09 22:15] VITALS: BP 109/73
[2019-11-09] MEDS ORDERED: MORPHINE SULFATE 2 MG/ML CPJ (NOT FOR IM USE) IV PRN (23:00)
[2019-11-09] MEDS ORDERED: CLONIDINE 0.1MG TABLET PO PRN (23:00)
[2019-11-09] MEDS ORDERED: ACETAMINOPHEN 325MG TABLET PO PRN (23:00)
[2019-11-09] MEDS ORDERED: ENOXAPARIN 40MG/0.4ML SYR SUBCUT SCH (23:00)
[2019-11-09] MEDS ORDERED: ONDANSETRON HCL 4MG/2ML INJ IV PRN (23:00)
[2019-11-09] MEDS ORDERED: LORAZEPAM 2MG/ML CPJ IV PRN (23:00)
[2019-11-09] MEDS: ENOXAPARIN 80MG/0.8ML SYR SUBCUT SCH (23:50)
[2019-11-10] VITALS: BP 97/66
[2019-11-10] MEDS ORDERED: AZITHROMYCIN 500 MG in DEXT 5% WATER 250 ML IV NR (00:30)
[2019-11-10] MEDS ORDERED: MVI, ADULT NO.1 10 ML, FOLIC ACID 1 MG, THIAMINE HCL 100 MG in SODIUM CHLORIDE 0.9% 1,0... IV NR ×4 (01:00)
[2019-11-10 02:49] LABS: *AMPHETAMINES SCREEN URINE NEGATIVE (NEGATIVE); *BARBITURATES SCREEN URINE NEGATIVE (NEGATIVE); *BENZODIAZEPINES SCREEN URINE NEGATIVE (NEGATIVE); *COCAINE SCREEN URINE NEGATIVE (NEGATIVE); CANNABINOID URINE SCREEN NEGATIVE (NEGATIVE); METHADONE URINE SCREEN NEGATIVE (NEGATIVE); OPIATES URINE SCREEN PRESUMTIVE POSITIVE (NEGATIVE); PHENCYCLIDINE URINE SCREEN NEGATIVE (NEGATIVE)
[2019-11-10 04:00] VITALS: BP 110/67
[2019-11-10 06:57] LABS: BASOPHILS % 1.4 % (0.0-2.0); EOSINOPHILS % 2.6 % (0.0-5.0); HEMOGLOBIN. 13.2 g/dL (14.0-18.0); MEAN CORPUSCULAR HEMOGLOBIN 29.6 pg (28.0-32.0); MEAN CORPUSCULAR VOLUME 87.5 fL (80.0-94.0); MEAN PLATELET VOLUME 7.4 fl (7.4-10.4); MONOCYTES % 12.1 % (2.0-8.0); NEUTROPHILS % 40.9 % (40.0-76.0); PLATELET 239 x1000/uL (130-400); RED BLOOD CELL COUNT 4.46 mill/uL (4.7-6.1); RED CELL DISTRIBUTION WIDTH 14.1 % (11.6-14.6)
[2019-11-10 07:52] LABS: CHLORIDE 104 mEq/L (98-107)
[2019-11-10 08:00] VITALS: BP 119/67
[2019-11-10] MEDS: ENOXAPARIN 80MG/0.8ML SYR SUBCUT SCH ×2 (09:00→21:37)
[2019-11-10 12:00] VITALS: BP 130/83
[2019-11-10] MEDS: ASPIRIN 81MG EC TABLET PO SCH (12:34)
[2019-11-10] MEDS: CLOPIDOGREL 75MG TABLET PO SCH (13:46)
[2019-11-10] MEDS ORDERED: DEXTROSE 50% WATER 50ML SYRINGE IV PRN (14:00)
[2019-11-10 16:00] VITALS: BP 128/78
[2019-11-10] MEDS ORDERED: CEFTRIAXONE 1 G PREMIX 50 ML IV SCH (16:00)
[2019-11-10] MEDS: INSULIN LISPRO 100 UNITS/ML SUBCUT SCH ×2 (18:10→21:00)
[2019-11-10] MEDS: BLOOD SUGAR DIAGNOSTIC STRIP TEST SCH ×2 (18:14→21:36)
[2019-11-10] MEDS: LACTOBACILLUS GG CAPSULE PO SCH (18:14)
[2019-11-10] MEDS: ALBUTEROL 6.7GM HFA INHALER ORI SCH (18:44)
[2019-11-10 20:00] VITALS: BP 98/58
[2019-11-10] MEDS: GUAIFENESIN 600MG ER TABLET PO SCH (21:36)
[2019-11-10] MEDS: ATORVASTATIN CALCIUM 10MG TABLET PO SCH (21:36)
[2019-11-10] MEDS ORDERED: AZITHROMYCIN 250 MG in DEXT 5% WATER 250 ML IV SCH (22:00)
[2019-11-11] VITALS: BP 95/59
[2019-11-11] MEDS: ALBUTEROL 6.7GM HFA INHALER ORI SCH ×4 (00:51→17:23)
[2019-11-11 04:00] VITALS: BP 102/68
[2019-11-11 07:01] LABS: BASOPHILS % 1.9 % (0.0-2.0); EOSINOPHILS % 3.8 % (0.0-5.0); HEMATOCRIT. 35.9 % (42.0-52.0); HEMOGLOBIN. 12.5 g/dL (14.0-18.0); LYMPHOCYTES % 41.6 % (20.0-50.0); MEAN CORPUSCULAR VOLUME 85.9 fL (80.0-94.0); MONOCYTES % 9.9 % (2.0-8.0); NEUTROPHILS % 42.8 % (40.0-76.0); PLATELET 257 x1000/uL (130-400); RED BLOOD CELL COUNT 4.17 mill/uL (4.7-6.1)
[2019-11-11] MEDS: BLOOD SUGAR DIAGNOSTIC STRIP TEST SCH ×4 (07:40→21:26)
[2019-11-11 07:41] LABS: CHLORIDE 104 mEq/L (98-107)
[2019-11-11 08:00] VITALS: BP 105/65
[2019-11-11] MEDS: INSULIN LISPRO 100 UNITS/ML SUBCUT SCH ×4 (08:10→21:32)
[2019-11-11] MEDS: AMLODIPINE 2.5MG TABLET PO SCH (09:00)
[2019-11-11] MEDS: GUAIFENESIN 600MG ER TABLET PO SCH ×2 (10:37→21:25)
[2019-11-11] MEDS: LACTOBACILLUS GG CAPSULE PO SCH (10:37)
[2019-11-11] MEDS: ASPIRIN 81MG EC TABLET PO SCH (10:37)
[2019-11-11] MEDS: CLOPIDOGREL 75MG TABLET PO SCH (10:37)
[2019-11-11] MEDS: ENOXAPARIN 80MG/0.8ML SYR SUBCUT SCH ×2 (10:38→21:27)
[2019-11-11 12:00] VITALS: BP 110/68
[2019-11-11] MEDS: METRONIDAZOLE 500MG TABLET PO SCH ×2 (13:23→21:25)
[2019-11-11 16:00] VITALS: BP 105/63
[2019-11-11 20:00] VITALS: BP 102/70
[2019-11-11] MEDS: ATORVASTATIN CALCIUM 10MG TABLET PO SCH (21:25)
[2019-11-12] VITALS: BP 127/81
[2019-11-12] MEDS: ALBUTEROL 6.7GM HFA INHALER ORI SCH ×4 (02:10→17:26)
[2019-11-12 04:00] VITALS: BP 112/76
[2019-11-12] MEDS: METRONIDAZOLE 500MG TABLET PO SCH ×2 (06:40→13:23)
[2019-11-12] MEDS: BLOOD SUGAR DIAGNOSTIC STRIP TEST SCH ×3 (06:40→17:32)
[2019-11-12] MEDS: INSULIN LISPRO 100 UNITS/ML SUBCUT SCH ×3 (07:44→17:32)
[2019-11-12 08:00] VITALS: BP 101/67
[2019-11-12 08:11] LABS: EOSINOPHILS % 4.4 % (0.0-5.0); HEMATOCRIT. 36.3 % (42.0-52.0); HEMOGLOBIN. 12.5 g/dL (14.0-18.0); LYMPHOCYTES % 35.4 % (20.0-50.0); MEAN CORPUSCULAR HEMOGLOBIN 29.2 pg (28.0-32.0); MEAN CORPUSCULAR VOLUME 84.6 fL (80.0-94.0); MEAN PLATELET VOLUME 7.3 fl (7.4-10.4); MONOCYTES % 12.1 % (2.0-8.0); NEUTROPHILS % 47.1 % (40.0-76.0); PLATELET 249 x1000/uL (130-400); RED BLOOD CELL COUNT 4.28 mill/uL (4.7-6.1); RED CELL DISTRIBUTION WIDTH 14.2 % (11.6-14.6)
[2019-11-12 08:24] LABS: CHLORIDE 104 mEq/L (98-107)
[2019-11-12] MEDS: AMLODIPINE 2.5MG TABLET PO SCH (08:57)
[2019-11-12] MEDS: CLOPIDOGREL 75MG TABLET PO SCH (08:58)
[2019-11-12] MEDS: HYDROCODONE/ACETAMINOPHEN 5/325MG TABLET PO PRN ×2 (08:58→17:45)
[2019-11-12] MEDS: ASPIRIN 81MG EC TABLET PO SCH (08:58)
[2019-11-12] MEDS: LACTOBACILLUS GG CAPSULE PO SCH (08:58)
[2019-11-12] MEDS: GUAIFENESIN 600MG ER TABLET PO SCH (08:58)
[2019-11-12] MEDS: ENOXAPARIN 80MG/0.8ML SYR SUBCUT SCH (10:27)
[2019-11-12 12:00] VITALS: BP 107/66
[2019-11-12 16:00] VITALS: BP 92/65
[2019-11-12] MEDS ORDERED: ASPI-1158 PO (18:03)
[2019-11-12] MEDS ORDERED: ALBU18HF2 IH (18:03)
[2019-11-12 18:07] VITALS: BP 92/65
[2019-11-12] MEDS ORDERED: HYDR-4001 MT (18:23)
== END 2019-11-12 20:52 | disposition home or self-care (01) | DRG 720 ==
LOC: ER 14:56 → 7WST 17:54 → EDBEDREQ 17:58 → ENRESERV 20:47
PROVIDERS: ADMIT Internal Medicine Nephrology; ATTEND Internal Medicine Nephrology
DX: A41.89 Other specified sepsis (principal); U07.1 COVID-19; E43 Unspecified severe protein-calorie malnutrition; I21.4 Non-ST elevation (NSTEMI) myocardial infarction; E11.9 Type 2 diabetes mellitus without complications; E78.5 Hyperlipidemia, unspecified; E87.1 Hypo-osmolality and hyponatremia; F17.210 Nicotine dependence, cigarettes, uncomplicated; I25.10 Atherosclerotic heart disease of native coronary artery without angina pectoris; J20.8 Acute bronchitis due to other specified organisms; J96.00 Acute respiratory failure, unspecified whether with hypoxia or hypercapnia; E87.2 Acidosis; I11.9 Hypertensive heart disease without heart failure; J12.89 Other viral pneumonia; I25.2 Old myocardial infarction; Z79.82 Long term (current) use of aspirin; Z79.899 Other long term (current) drug therapy; Z79.02 Long term (current) use of antithrombotics/antiplatelets; Z82.3 Family history of stroke; Z82.49 Family history of ischemic heart disease and other diseases of the circulatory system; Z68.24 Body mass index [BMI] 24.0-24.9, adult
CPT/HCPCS: 36415; 71045; 80048; 80053; 80305; 81003; 82550; 82728; 82962; 83605; 83615; 83735; 83880; 84145; 84484; 85025; 85379; 85384; 86140; 87045; 87449; 89055; 93005; 96374; 99285; J0456; J0696; J1650; J1815; J2270; J2405; J3411; J3490; J7030; J7060

== ENCOUNTER 2019-11-14 13:53 | Emergency (ER) | payer MEDICAID, OTHER ==
[~2019-11-14] VITALS: Ht 170.2 cm; Wt 79.0 kg
[~2019-11-14 13:53] MED LIST: ALBU18HF2 IH; ASPI-1158 PO; HYDR-4001 MT
[2019-11-14] MEDS ORDERED: SODIUM CHLORIDE 0.9% 1,000 ML IV ONE (14:15)
[2019-11-14] MEDS ORDERED: ONDANSETRON HCL 4MG/2ML INJ IV STA (14:15)
[2019-11-14] MEDS ORDERED: ASPIRIN 81MG TABLET PO NR (14:45)
[2019-11-14] MEDS ORDERED: KETOROLAC 30MG/ML VIAL IV NR (14:45)
[2019-11-14] MEDS ORDERED: MAGNESIUM/ALUMINUM HYDROXIDE/SIMETHICONE 30ML UDC PO NR (14:45)
[2019-11-14] MEDS ORDERED: VISCOUS LIDOCAINE 2% 15 ML UDC PO NR (14:45)
[2019-11-14 16:01] LABS: BASOPHILS % 1.2 % (0.0-2.0); EOSINOPHILS % 4.5 % (0.0-5.0); HEMATOCRIT. 39.7 % (42.0-52.0); HEMOGLOBIN. 13.5 g/dL (14.0-18.0); LYMPHOCYTES % 34.4 % (20.0-50.0); MEAN CORPUSCULAR HEMOGLOBIN 29.4 pg (28.0-32.0); MEAN CORPUSCULAR VOLUME 86.3 fL (80.0-94.0); MEAN PLATELET VOLUME 7.6 fl (7.4-10.4); MONOCYTES % 11.8 % (2.0-8.0); NEUTROPHILS % 48.1 % (40.0-76.0); PLATELET 274 x1000/uL (130-400); RED CELL DISTRIBUTION WIDTH 14.3 % (11.6-14.6)
[2019-11-14 16:04] LABS: CLARITY URINE CLEAR (CLEAR); COLOR URINE YELLOW (YELLOW); KETONES URINE NEGATIVE (NEGATIVE); LEUKOCYTE ESTERASE URINE TRACE (NEGATIVE); NITRITE URINE NEGATIVE (NEGATIVE); OCCULT BLOOD URINE NEGATIVE (NEGATIVE); PH URINE 8.5 (4.5-8.0); PROTEIN URINE NEGATIVE (NEGATIVE); SPECIFIC GRAVITY URINE 1.011 (1.005-1.030)
[2019-11-14 16:06] LABS: PROTHROMBIN TIME 10.9 sec (9.6-11.0)
[2019-11-14 16:08] LABS: CHLORIDE 103 mEq/L (98-107)
[2019-11-14 19:48] VITALS: BP 138/79
== END 2019-11-14 20:28 | disposition home or self-care (01) ==
LOC: ER 14:10
DX: N39.0 Urinary tract infection, site not specified (principal); R79.89 Other specified abnormal findings of blood chemistry; I25.10 Atherosclerotic heart disease of native coronary artery without angina pectoris; Z79.82 Long term (current) use of aspirin; Z79.899 Other long term (current) drug therapy
CPT/HCPCS: 36415; 74021; 80053; 81003; 83690; 84484; 85025; 85610; 93005; 96374; 96375; 99285; J1885; J2405; J7030; Z7610

== ENCOUNTER 2022-12-25 15:08 | Emergency (ER) | payer MEDICAID ==
[~2022-12-25] VITALS: Ht 170.2 cm; Wt 81.8 kg
[~2022-12-25 15:08] MED LIST changes: -ASPI-1158 PO; +ASPI-1406 PO
[2022-12-25 15:14] VITALS: O2SAT 95
[2022-12-25] MEDS ORDERED: IBUPROFEN 400MG TABLET PO ONE (18:45)
[2022-12-25] MEDS ORDERED: IBUP-2028 MT (19:08)
[2022-12-25 20:19] VITALS: BP 110/80; PULSE 80; RESP 18; TEMP 98.1
== END 2022-12-25 20:19 | disposition home or self-care (01) ==
LOC: ER 15:08
DX: M79.605 Pain in left leg (principal); W01.0XXA Fall on same level from slipping, tripping and stumbling without subsequent striking against object, initial encounter; Y93.89 Activity, other specified; Y92.89 Other specified places as the place of occurrence of the external cause; Y99.8 Other external cause status
CPT/HCPCS: 72170; 73552; 99284